=== PATIENT | female | born 1980 | race Caucasian/White ===

== ENCOUNTER 2017-05-23 01:58 | Inpatient (IN) | payer BC ==
[2017-05-23] MEDS ORDERED: Carboprost Tromethamine 250 MCG/1 ML Amp IM PRN (02:23)
[2017-05-23] MEDS ORDERED: Methylergonovine 0.2 MG/1 ML Amp IM PRN (02:23)
[2017-05-23] MEDS ORDERED: Butorphanol 1 MG/ML SDV IVPUSH PRN (02:23)
[2017-05-23] MEDS ORDERED: Sodium Chloride 0.9% 10 ML Syringe FLUSH PRN (02:23)
[2017-05-23] MEDS ORDERED: Water For Irrigation,Sterile 1,000 ML Container IRR PRN (02:23)
[2017-05-23] MEDS ORDERED: Lidocaine 1% 50 ML MDV INJECT PRN (02:23)
[2017-05-23] MEDS ORDERED: Misoprostol 200 MCG Tab PO PRN (02:23)
[2017-05-23] MEDS ORDERED: Tranexamic Acid 1,000 MG in Sodium Chloride 0.9% 100 ML IV PRN (02:23)
[2017-05-23] MEDS ORDERED: Nalbuphine 10 MG/1 ML Vial IVPUSH PRN (02:23)
[2017-05-23] MEDS ORDERED: Sodium Chloride 0.9% 2.5 ML Syringe FLUSH PRN (02:23)
[2017-05-23] MEDS ORDERED: Oxytocin/0.9 % Sodium Chloride 30 UNIT/500 ML BAG IV SCH (02:30)
[2017-05-23] MEDS ORDERED: Lactated Ringers 1,000 ML IV SCH (02:30)
[2017-05-23] MEDS ORDERED: Oxytocin/0.9 % Sodium Chloride 30 UNIT/500 ML BAG ONE (02:33)
[2017-05-23] MEDS ORDERED: Lidocaine 1% 50 ML MDV ONE (02:33)
[2017-05-23] MEDS ORDERED: Ibuprofen 400 MG Tab PO PRN (03:08)
[2017-05-23] MEDS ORDERED: oxyCODONE 5 MG Tab PO PRN (03:08)
[2017-05-23] MEDS ORDERED: Benzocaine/Menthol 20%-0.5% Spray 78 GM Cannister TOP PRN (03:08)
[2017-05-23] MEDS ORDERED: Witch Hazel Medicated Pads 40/Jar TOP PRN (03:08)
[2017-05-23] MEDS ORDERED: Acetaminophen 500 MG Tab PO PRN ×2 (03:08)
[2017-05-23] MEDS ORDERED: Lanolin 100% Cream 7 GM Tube TOP PRN (03:08)
[2017-05-23] MEDS ORDERED: Docusate Sodium 100 MG Cap PO PRN (03:08)
[2017-05-23] MEDS ORDERED: Bisacodyl 10 MG Supp RECTAL PRN (03:08)
[2017-05-23] MEDS: Ibuprofen 800 MG Tab PO PRN ×3 (04:33→20:53)
--- NOTE | 2017-05-23 09:37 | OR ---
SURGEON: TARIK BENEDICT DATE OF PROCEDURE: 05/23/2017 PREOPERATIVE DIAGNOSES: 1. This 37-year-old 4, para 3-0-0-3 at 40 weeks 0 days in active labor. 2. Previous section x1. 3. Previous vaginal after section x2. POSTOPERATIVE DIAGNOSES: Status post vaginal after section. PROCEDURE: Vaginal after section. ESTIMATED BLOOD LOSS: 300ml ANESTHESIA: None. FINDINGS: Live female delivered at 2:36 a.m. was 7 and 9. Three-vessel cord noted. No lacerations noted. BRIEF HISTORY: The patient is a 37-year-old G4, P3-0-0-3 at 40 weeks admitted in active labor. She made rapid change from 7 cm to fully dilated with the patient's pushing efforts. She had good pushing effort. PROCEDURE IN DETAIL: With the patient's good pushing effort, the head was delivered followed by the anterior and posterior shoulder and the body of the infant. Infant was placed on maternal abdomen. Delayed cord clamping was observed. The placenta was then delivered by controlled cord traction. Pitocin was started after delivery of anterior shoulder. The cord blood gases were obtained. The perineum was inspected and was found to be intact. All the instrument and pad counts were correct x2. The left the delivery room with the parents. JOSEY COUGHLIN /[id number] MTDD
[2017-05-24] MEDS: Ibuprofen 800 MG Tab PO PRN (06:01)
[2017-05-24 09:00] VITALS: BP 118/62
--- NOTE | 2017-05-24 09:24 | PCM.PNPP ---
- General Info Date of Service: 05/24/17 Subjective Update: Patient is feeling well, ambulating, voiding, lochia is dissipating. Ambulating without difficulty. She is . Pain is well controlled. She would like to go home today. - Review of Systems General: Denies: Fever Pulmonary: Denies: Shortness of Breath Cardiovascular: Denies: Chest Pain, Palpitations, Lightheadedness Gastrointestinal: Denies: Abdominal Pain, Nausea, Vomiting Genitourinary: Denies: Flank Pain - General Info Date of Service: 05/24/17 - Patient Data Vital Signs - Most Recent: Last Vital Signs Temp 36.4 C 05/24/17 07:31 Pulse 67 05/24/17 07:31 Resp 16 05/24/17 07:31 BP 118/62 05/24/17 08:00 Pulse Ox 98 05/24/17 07:31 Weight - Most Recent: 75.296 kg Lab Results - Last 24 Hours: Laboratory Results - last 24 hr 05/24/17 Range/Units 06:15 Hgb 11.0 L (12.0-16.0) g/dL Hct 33.6 L (36.0-46.0) % Med Orders - Current: Current Medications Acetaminophen (Tylenol Extra Strength) 500 mg PO Q4H PRN PRN Reason: Pain Acetaminophen (Tylenol Extra Strength) 1,000 mg PO Q4H PRN PRN Reason: Pain Benzocaine/Menthol (Dermoplast Pain Relief 20%-0.5% [place]) 78 gm TOP ASDIRECTED PRN PRN Reason: Perineal Comfort Measure Last Admin: 05/23/17 04:35 Dose: 1 canister Bisacodyl (Dulcolax) 10 mg RECTAL .ONCE PRN PRN Reason: Constipation Carboprost Tromethamine (Hemabate Ds) 250 mcg IM ASDIRECTED PRN PRN Reason: Post Hemorrhage Docusate Sodium (Colace) 100 mg PO BID PRN PRN Reason: Constipation Emollient Ointment (Lansinoh Hpa) 0 gm TOP ASDIRECTED PRN PRN Reason: Sore Nipples Last Admin: 05/23/17 16:20 Dose: 1 tube Lactated Ringer's (Ringers, Lactated) 1,000 mls @ 150 mls/hr IV ASDIRECTED BUZZ Last Admin: 05/23/17 02:22 Dose: 999 mls/hr Oxytocin/Sodium Chloride (Oxytocin 30 Unit/500 Ml-Ns) 30 unit in 500 mls @ 999 mls/hr IV TITRATE BUZZ Last Admin: 05/23/17 02:37 Dose: 999 mls/hr Tranexamic Acid 1,000 mg/ (Sodium Chloride) 110 mls @ 600 mls/hr IV ONETIME PRN PRN Reason: Bleeding Ibuprofen (Motrin) 400 mg PO Q4H PRN PRN Reason: Pain Ibuprofen (Motrin) 800 mg PO Q6H PRN PRN Reason: Pain Last Admin: 05/24/17 06:01 Dose: 800 mg Methylergonovine Maleate (Methergine) 0.2 mg IM ASDIRECTED PRN PRN Reason: Post Hemorrhage Misoprostol (Cytotec) 200 mcg PO .ONCE PRN PRN Reason: Post Hemorrhage Oxycodone HCl (Oxycodone) 5 mg PO Q2H PRN PRN Reason: Pain Sodium Chloride (Saline Flush) 10 ml FLUSH ASDIRECTED PRN PRN Reason: Keep Vein Open Sodium Chloride (Saline Flush) 2.5 ml FLUSH ASDIRECTED PRN PRN Reason: Keep Vein Open Sterile Water (Sterile Water For Irrigation) 1,000 ml IRR ASDIRECTED PRN PRN Reason: delivery Last Admin: 05/23/17 02:30 Dose: 1,000 ml Witch Kristen (Tucks) 1 pad TOP ASDIRECTED PRN PRN Reason: comfort care Discontinued Medications Butorphanol Tartrate (Stadol) 1 mg IVPUSH Q1H PRN PRN Reason: Pain Oxytocin/Sodium Chloride (Oxytocin 30 Unit/500 Ml-Ns) Confirm Administered Dose 30 unit in 500 mls @ as directed .ROUTE .STAirwoot-MED ONE Stop: 05/23/17 02:34 Last Admin: 05/23/17 12:49 Dose: Not Given Lidocaine HCl (Xylocaine 1%) 50 ml INJECT .ONCE PRN PRN Reason: Laceration repair Lidocaine HCl (Xylocaine 1%) Confirm Administered Dose 50 ml .ROUTE .STK-MED ONE Stop: 05/23/17 02:34 Last Admin: 05/23/17 12:49 Dose: Not Given Nalbuphine HCl (Nubain) 10 mg IVPUSH Q1H PRN PRN Reason: Pain (severe 7-10) - Infant Interaction Infant Disposition, : in Room with Family Interaction: Holding Support Person: - Recovery Exam Fundal Tone: Firm Fundal Level: 3 Fingerbreadths Below Umbilicus Fundal Placement: Midline Lochia Amount: Scant Lochia Color: Rubra/Red Perineum Description: Intact, Minimal Bruising/Swelling Episiotomy/Laceration: None Bladder Status: Voiding Urinary Elimination: Voided - Exam General: Alert, Oriented Lungs: Normal Respiratory Effort Cardiovascular: Regular Rate, Regular Rhythm GI/Abdominal Exam: Normal Bowel Sounds, Soft Extremities: Pedal Edema (trace). No: Adonay's Sign Skin: Warm, Dry, Intact Psy/Mental Status: Alert, Normal Affect - Problem List & Annotations (1) Vaginal after , delivered, current hospitalization SNOMED Code(s): 120478683 Code(s): O34.21 - MATERNAL CARE FOR SCAR FROM PREVIOUS * DO NOT USE * Status: Acute Current Visit: No - Problem List Review Problem List Initiated/Reviewed/Updated: Yes - Assessment Assessment:: PPD 1 status post - Plan Plan:: Discharge to home. Follow up at [facility] 6 weeks. Continue PNV daily. Infection and bleeding warnings given. Discharge instructions reviewed.
== END 2017-05-24 13:05 | disposition home or self-care (01) | DRG 560 ==
LOC: MW.OBCHECK 01:58 → MW.OB 02:00 → MW.OBCHECK 02:23 → MW.OB 02:23 → OBSVTOIN 02:36
PROVIDERS: ADMIT Obstetrics & Gynecology; ATTEND Obstetrics & Gynecology
PROC: 10E0XZZ Delivery of Products of Conception, External Approach (ICD-10-PCS; principal; 2017-05-23)
DX: O34.211 Maternal care for low transverse scar from previous cesarean delivery (principal); Z3A.40 40 weeks gestation of pregnancy; Z37.0 Single live birth
CPT/HCPCS: 36415; 59025; 59409; 85014; 85018; 85027; 86850; 86900; 86901; A9270-GY; J2590; J7120